=== PATIENT | male | born 1965 | race Hispanic/Latino ===

== ENCOUNTER 2025-01-30 06:59 | Day surgery (SDC) | payer OTHER ==
[2025-01-30] VITALS (10 sets, daily range): BP systolic 90–119; BP diastolic 62–78; PULSE 70–88; RESP 14–18; TEMP 97.3–98.1
[~2025-01-30 06:59] MED LIST: ASPI-1443 PO; ATOR-428 PO; METF-445 PO; METO-408 PO
[2025-01-30 07:37] LABS: BASOPHILS # (AUTO) 0.03 K/uL (0.00-0.20); BASOPHILS % (AUTO) 0.5 % (0.0-5.0); EOSINOPHILS # (AUTO) 0.18 K/uL (0.00-0.70); EOSINOPHILS % (AUTO) 3.1 % (0.0-8.0); HEMATOCRIT 43.6 % (42-54); IMMATURE GRANULOCYTE ABSOLUTE 0.04 K/uL (0-1); LYMPHOCYTES # (AUTO) 1.9 K/uL (1.0-4.8); LYMPHOCYTES % (AUTO) 32.5 % (21.0-51.0); MEAN CORPUSCULAR HEMOGLOBIN 27.5 pg (27.0-33.0); MEAN CORPUSCULAR HGB CONC 33.3 g/dL (32.0-36.0); MEAN CORPUSCULAR VOLUME 82.7 fL (79-99); MONOCYTES # (AUTO) 0.4 K/uL (0.1-1.0); MONOCYTES % (AUTO) 6.3 % (3.0-13.0); NEUTROPHILS # (AUTO) 3.3 K/uL (1.8-7.7); NEUTROPHILS % (AUTO) 56.9 % (40.0-77.0); PLATELET COUNT (AUTO) 221 K/uL (130-400); RED BLOOD CELL COUNT(AUTO) 5.27 MIL/uL (4.50-6.20); RED CELL DISTRIBUTION WIDTH 13.2 % (11.0-15.5); WHITE BLOOD COUNT (AUTO) 5.9 K/uL (4.8-10.8)
[2025-01-30 07:49] LABS: INR 0.98 (0.85-1.15); PROTHROMBIN TIME 10.4 SEC (9.6-11.6)
[2025-01-30 07:50] LABS: PARTIAL THROMBOPLASTIN TIME 27.7 SEC (26.3-35.5)
--- NOTE | 2025-01-30 07:54 | EKG ---
[facility] Test Date: 2025-01-30 Test Time: 07:25:57 Pat Name: MARCELLO MARTINEZ Department: [facility] Room: [facility] Gender: Male Senior Account Representative: [id number] : 1965 Requested By: Harrison BRADLEY Order Number: [id number] Reading MD: Measurements Intervals [place] Rate: 79 P: 66 [place]: 140 QRS: 71 QRSD: 121 T: -34 QT: 385 QTc: 442 Interpretive Statements Sinus rhythm Nonspecific intraventricular conduction delay No previous ECG available for comparison Please click the below link to view image of tracing.
[2025-01-30 08:01] LABS: CREATININE 0.8 mg/dL (0.5-1.3)
[2025-01-30] MEDS: 0.9%NACL 1000ML 1,000 ML IV SCH (08:11)
--- NOTE | 2025-01-30 08:27 | HMCIMG ---
CHEST 1VW HISTORY: Preop COMPARISON: None FINDINGS: A frontal projection of the chest was obtained. No acute pulmonary infiltrates is seen. The heart is normal in size. No evidence of aortic calcification is seen. IMPRESSION: 1. No acute pulmonary infiltrate is seen.
[2025-01-30 08:39] LABS: B-TYPE NATRIURETIC PEPTIDE < 5 pg/mL (0-100)
[2025-01-30] MEDS ORDERED: LIDOCAINE HCL 400MG/20ML VIAL ONE (11:14)
[2025-01-30] MEDS ORDERED: HEParin-NS 1,000 UNIT/500 ML 1,000 ML IV ONE (11:15)
[2025-01-30] MEDS ORDERED: NITROGLYCERIN 50MG VIAL ONE (11:15)
[2025-01-30] MEDS ORDERED: IOHEXOL-350 50ML VIAL IV ONE (11:15)
[2025-01-30] MEDS ORDERED: niCARDIpine 25MG INJ IV ONE (11:15)
[2025-01-30] MEDS ORDERED: HEParin 10,000 UNIT/10ML (1,000 UNIT/ML) VIAL ONE (11:15)
[2025-01-30] MEDS ORDERED: IOHEXOL 350 MG/ML 100ML INFUS..BTL IV ONE (11:15)
[2025-01-30] MEDS ORDERED: FENTanyl CITRate PF 50 MCG/1 ML 2ML VIAL ONE (11:50)
[2025-01-30] MEDS ORDERED: MIDAZOLAM HCL 1 MG/ML 2ML VIAL ONE ×2 (11:50→11:58)
[2025-01-30] MEDS ORDERED: SODIUM BICARB 50MEQ 50ML VIAL 50 ML ONE (12:00)
[2025-01-30] MEDS ORDERED: GLUCAGON 1MG KIT 1 MG ML IM PRN (13:00)
[2025-01-30] MEDS ORDERED: 0.9%NACL 1000ML 1,000 ML IV SCH (13:00)
[2025-01-30] MEDS ORDERED: DEXTROSE 50%-WATER 50 ML DISP.SYRIN IV PRN (13:00)
--- NOTE | 2025-01-30 14:30 | NUR ---
stefanie removed tota 7 ml air out pt tolerated well no active bleeding radial puncture site covered with 2x2 and tagaderm and instructed pt to call nurse if bleeding or bump occurs
[2025-01-30] MEDS ORDERED: INSULIN humuLIN R 100 UNIT/ML 3ML SQ SCH (16:30)
--- NOTE | 2025-01-31 04:56 | PR ---
PROCEDURES: * Left heart catheterization. * Diagnostic selective right and left coronary arteriogram. * Conscious sedation for 30 minutes. INDICATIONS: * Recurrent angina. * Abnormal coronary CT angiogram. * Abnormal exercise echocardiogram. COMPLICATIONS: None. TOTAL CONTRAST: 55 mL. DESCRIPTION OF PROCEDURE: The patient was taken to the cardiac catheterization lab after appropriate operative consents were signed. He was prepped and draped in the usual fashion. After conscious sedation was administered, the right radial artery region was infiltrated with 2% Xylocaine without epinephrine. The radial artery was accessed and a 6-Nepali slender sheath was advanced in retrograde fashion by the modified Seldinger technique. A TIG 4 catheter was advanced over an indwelling wire and positioned into the left ventricular cavity. Left ventricular end-diastolic pressure measurement was obtained. Ventriculography was deferred. The patient has preserved LV systolic function by noninvasive studies. Pullback revealed no aortic stenosis. The catheter was then engaged in the ostium of the right coronary artery. This was a large vessel that was noted to have a 20% mid to distal lesion. It gave rise to acute marginal, a large PDA and PLVB. The right coronary artery had minor luminal irregularities. There was evidence of retrograde filling of the circumflex marginal branches via right to left flow from the right coronary artery. The catheter was withdrawn and engaged in the ostium of the left main. This was imaged in multiplane. In multiple views, the patient was noted to have a kinked lesion in the left main with an estimated stenotic area of 50%. The left main bifurcated into LAD, circumflex. The circumflex was a moderately sized vessel that gave rise to a tiny first obtuse marginal. The circumflex was occluded 100% after that with minimal collateralization of the distal branching OM. The LAD was small to moderately sized vessel. It gave rise to moderately-sized diagonal 1 and diagonal 2. The first diagonal had a 70% lesion. The mid LAD at the level of the second diagonal had a calcific 80% stenotic lesion but also involved the ostium of the second diagonal. At this point, the procedure was completed, radial band was applied with good hemostasis. The patient tolerated well and left the cardiac catheterization lab in stable condition. FINAL IMPRESSION: * Severe coronary artery disease. * Recurrent angina. * Abnormal exercise echo. * Abnormal coronary CT angiogram. RECOMMENDATIONS: Consultation with Cardiothoracic Surgery given the patient's left main stenosis, his relatively young age of 59 years and the complex bifurcated lesion in the LAD diagonal. TID: [id number] RECEIPT: [id number]
== END 2025-01-30 17:00 | disposition home or self-care (01) ==
LOC: DAH 06:59
PROVIDERS: ATTEND Internal Medicine Cardiovascular Disease
DX: R93.1 Abnormal findings on diagnostic imaging of heart and coronary circulation (principal); I25.118 Atherosclerotic heart disease of native coronary artery with other forms of angina pectoris; I25.84 Coronary atherosclerosis due to calcified coronary lesion; E11.9 Type 2 diabetes mellitus without complications; E78.2 Mixed hyperlipidemia; Z88.8 Allergy status to other drugs, medicaments and biological substances; Z79.01 Long term (current) use of anticoagulants; Z79.82 Long term (current) use of aspirin; Z79.899 Other long term (current) drug therapy
CPT/HCPCS: 93458; 80048; 83880; 85025; 85610; 85730; 82948 ×2; 71045; 93005; C1769; A4649; C1894; J3010; J3490 ×4; J1644 ×2; J2250 ×2; Q9967; A4215; A4222; A4221; A4663; A4216; A4606; Q9965; A4223 ×3; 99156; 99157